=== PATIENT | male | born 1995 | race Caucasian/White ===

== ENCOUNTER 2024-07-02 12:45 | Emergency (ER) | payer OTHER, SELFPAY ==
[2024-07-02 12:55] VITALS: BP 133/79; PULSE 60; RESP 15; TEMP 36.6; O2SAT 96
--- NOTE | 2024-07-02 13:00 | DI.RAD_ITS ---
Exam(s) XR SHOULDER LT COMPLETE 2+V EXAM: XR SHOULDER LT COMPLETE 2+V CLINICAL HISTORY: left shoulder pain after hitting lift tower. TECHNIQUE: 2D digital imaging was performed. COMPARISON: No exams were available for comparison FINDINGS: Five views. No evidence of acute fracture or dislocation of the glenohumeral joint. No soft tissue densities yesenia dent. There is an element of offset of the AC joint. No fracture of the clavicle nor of the acromion. Cor acoid process is intact. Bone density normal. No osseous lesions. IMPRESSION: There is offset of the AC joint. Correlation with site of tenderness recommended. There are no frac tures. DATA REPOSITORY: RADIATION DOSE DELIVERED:
--- NOTE | 2024-07-02 14:10 | ED.GENADUL_ITS ---
Discharge Plan Disposition Patient Disposition: Home Condition: Good Discharge Details Clinical Impression: Sprain of left shoulder, Injury of left acromioclavicular joint Primary Care Provider: Akanksha,Local ED Provider: Wilbert Lindsey Home Meds and New Rx's Prescriptions: No Action acetaminophen 325 mg capsule 650 mg PO Q4H PRN Discharge Instructions Instructions: Shoulder Sprain ED Additional Instructions: At this time the x-ray shows slight separation of your AC joint. No evidence of fracture or broken bone otherwise. Please continue to take Tylenol and Motrin for pain. Apply the Voltaren gel to the shoulder 2-3 times per day. Please use the sling for comfort to aid in the healing of your AC joint disruption. However it is also imperative that you move your shoulder around regularly to prevent any frozen shoulder syndrome. Please continue good passive range of motion exercises as I showed you 3-5 times per day. If you still have persistent pain and discomfort after the next 1 to 2 weeks of conservative therapy you may need further evaluation by an business control specialist. If you notice any worsening of your symptoms, or any new symptoms such as vomiti ng, diarrhea, fever, chills, shortness of breath, chest pain, numbness, weakness, or fainting , please return immediately to the emergency department for reevaluation. Please follow up with your primary care provider as soon as possible for reassessment and reevaluation. As always, it was a pleasure participating in your medical care today. Discharge Data Discharge Date/Time-TO BE ENTERED AT DEPARTURE: 07/02/24 14:23 HPI General Date/Time Provider Initiated Documentation: 07/02/24 13:05 . HPI Narrative: 28-year-old male with no significant past medical history who is right-hand dominant who presents today for left shoulder discomfort. Patient states that 3 days ago he was skiing and fell while helmeted and hit his left shoulder on the chairlift tower. He had no loss of consciousness. He did not dislocate anything at that time. He went and saw skilled nursing case manager who recommended x- ray. He has taken Tylenol Motrin over the last few days but has noticed continued pain even at rest and came in for further assessment. Pain is mainly located in the anterior aspect of the left shoulder. No radiation anywhere else. Made worse with movement both actively and passively. Mildly improved with Tylenol and Motrin. He has been using a sling intermittently. He denies any other complaints at this time Related Data Home Medications ?Medication ?Instructions ?Recorded ?Confirmed acetaminophen 325 mg capsule 650 mg PO Q4H PRN 07/02/24 07/02/24 Allergies Allergy/AdvReac Type Severity Reaction Status Date / Time No Known Allergies Allergy Unverified 07/02/24 12:58 General Stated Complaint: Orthopedic TOÑO: 4 Exam Narrative Exam Narrative: 1.Const: Well-nourished, Well-developed, appearing stated age 2.Eyes: PERRL, no conjunctival injection, and symmetrical lids. 3.ENT: Atraumatic external nose and ears. Moist MM. Neck: Symmetric, trachea midline, No thyromegaly. 4.CVS: +S1/S2, Peripheral pulses 2+ and equal in all extremities. Brisk capillary refill in all extremities. 5.RESP: Unlabored respiratory effort. Clear to auscultation bilaterally. No wheezes rales or rhonchi 6.GI: Soft, Nontender/Nondistended, No hepatosplenomegaly. No guarding or rebound. 7.MSK: Left shoulder demonstrates mild anterior tenderness over the AC joint and the anterior humeral head. No posterior tenderness. No redness or swelling. Mild restricted range of motion with abduction, and external rotation. Pain notably worsened with anterior movement, external rotation, and abduction. Notable pain with empty can test. No evidence of dislocation. 8.Skin: Warm, Dry. No rashes or lesions. 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 Sensation grossly intact, no focal neurologic deficits. 10.Psych: (AAO) x3. Appropriate mood and affect Course Vital Signs Vital signs: Vital Signs Temperature 36.6 C 07/02/24 12:55 Pulse 60 07/02/24 12:55 Respiratory Rate 15 07/02/24 12:55 Blood Pressure 133/79 07/02/24 12:55 Pulse Oximetry 96 07/02/24 12:55 Temperature 36.6 C 07/02/24 12:55 Pulse 60 07/02/24 12:55 Respiratory Rate 15 07/02/24 12:55 Blood Pressure 133/79 07/02/24 12:55 Blood Pressure Position Sitting 07/02/24 12:55 Pulse Oximetry 96 07/02/24 12:55 Oxygen Delivery Method Room Air 07/02/24 12:55 Oxygen Flow Rate 0 07/02/24 12:55 Pain Level 4 07/02/24 13:02 Medical Decision Making 28-year-old male with no significant past medical history who is right-hand dominant who presents today for left shoulder discomfort. Patient states that 3 days ago he was skiing and fell while helmeted and hit his left shoulder on the chairlift tower. He had no loss of consciousness. He did not dislocate anything at that time. He went and saw skilled nursing case manager who recommended x- ray. He has taken Tylenol Motrin over the last few days but has noticed continued pain even at rest and came in for further assessment. Pain is mainly located in the anterior aspect of the left shoulder. No radiation anywhere else. Made worse with movement both actively and passively. Mildly improved with Tylenol and Motrin. He has been using a sling intermittently. He denies any other complaints at this time Left shoulder demonstrates mild anterior tenderness over the AC joint and the anterior humeral head. No posterior tenderness. No redness or swelling. Mild restricted range of motion with abduction, and external rotation. Pain notably worsened with anterior movement, external rotation, and abduction. Notable pain with empty can test. No evidence of dislocation. Concern for AC joint separation, less likely humeral or clavicular fracture. Suspect bursal inflammation and pain from this. Potential mild ligamentous/rotator cuff injury. Will get an x-ray, monitor closely and tavares ssess. 3 PM X-ray shows evidence of an offset of the AC joint, no evidence of fracture. Suggest mild AC joint injury. Will recommend continued sling for home use. Recommend Voltaren gel topically, and continued NSAID therapy. Additionally we we will recommend continued range of motion exercises to prevent frozen shoulder syndrome, patient will follow-up closely with his home physician in [place]. Recommend continued NSAID therapy. Patient will follow-up with his business control specialist upon his return home. Discussed red flags which to return. I have extensively reviewed the treatment plan and discharge instructions with the patient. I have addressed all patient concerns at this time. The patient was made aware of what symptoms to monitor for that would warrant a return to the emergency department. Discussed the plan with the patient, they demonstrate verbal understanding and agreement with our assessment and plan at this time. The documentation in this chart was dictated using [facility] dictation software. Please excuse any dictation errors. FINDINGS: Five views. No evidence of acute fracture or dislocation of the glenohumeral joint. No soft tissue densities evident. There is an element of offset of the AC joint. No fracture of the clavicle nor of the acromion. Coracoid process is intact. Bone density normal. No osseous lesions. IMPRESSION: There is offset of the AC joint. Correlation with site of tenderness recommended. There are no fractures. Quality:SDOH Health Related Social Needs: No Data to Display PFSH All Active Problems (Updated 07/02/24 @ 14:13 by Wilbert Lindsey DO) Injury of left acromioclavicular joint (Acute) Sprain of left shoulder (Acute) Social History Smoking risk assessment performed?: No
[2024-07-02] MEDS: Diclofenac 1% Gel 100 GM TUBE TP (14:16)
== END 2024-07-02 14:23 | disposition home or self-care (01) ==
PROVIDERS: Emergency Provider Student in an Organized Health Care Education/Training Program
DX: S43.52XA Sprain of left acromioclavicular joint, initial encounter (principal); X58.XXXA Exposure to other specified factors, initial encounter
CPT/HCPCS: 99283; 73030